=== PATIENT | female | born 1940 | race Caucasian/White ===

== ENCOUNTER → 2019-03-11 08:17 | Outpatient (CLI) | payer MEDICARE, BC, SELFPAY ==
[2019-03-11 09:54] LABS: Vitamin D 25 Hydroxy (D3) 28.2 ng/mL (30.0-100.0)
== END ==
PROVIDERS: PCP Nurse Practitioner; Visit Provider Nurse Practitioner
DX: C22.9 Malignant neoplasm of liver, not specified as primary or secondary (principal); E55.9 Vitamin D deficiency, unspecified
CPT/HCPCS: 36415; 80053; 82105; 82306; 85025

== ENCOUNTER → 2019-06-06 12:00 | Outpatient (CLI) | payer MEDICARE, BC, SELFPAY ==
[2019-06-06 13:21] LABS: Add Manual Diff / Slide Review NO; Basophils Absolute Auto 0 /uL (0-100); Basophils Percent Auto 0.8 % (0-2); Eosinophils Absolute Auto 0 /uL (0-450); Eosinophils Percent Auto 0.5 % (2-4); Hematocrit 44.9 % (36-46); Hemoglobin 15.7 g/dL (12.0-16.0); Lymphocytes Absolute Auto 500 /uL (1100-4500); Mean Corpuscular Hemoglobin 33.1 PG (26-34); Mean Corpuscular Volume 94.5 fL (80-100); Monocytes Absolute Auto 300 /uL (0-900); Monocytes Percent Auto 9.7 % (3-14); Neutrophils Absolute Auto 2700 /uL (1500-7000); Platelet Count 160 X10^3/uL (150-400); Red Blood Cell Count 4.75 X10^6/uL (4.0-5.2); Red Cell Distribution Width 13.8 % (11.6-14.8); White Blood Cell Count 3.6 X10^3/uL (4.5-11.0)
[2019-06-06 13:41] LABS: Alanine Aminotransferase 75 IU/L (<35); Albumin 4.4 g/dL (3.5-5.0); Albumin Globulin Ratio 1.7 (1.0-2.8); Alkaline Phosphatase 148 U/L (38-126); Aspartate Aminotransferase 87 IU/L (14-36); BUN Creatinine Ratio 16.3 (6-22); Bilirubin Total 0.7 mg/dL (0.2-1.3); Blood Urea Nitrogen 13 mg/dL (7-17); Calcium 9.5 mg/dL (8.4-10.2); Carbon Dioxide 30 mmol/L (22-32); Chloride 101 mmol/L (98-107); Estimated Glomerular Filt Rate > 60.0 mL/min (>60); Globulin 2.6 g/dL (1.7-4.1); Glucose 91 mg/dL (80-110); HEMOLYSIS < 15 (0-50); Potassium 4.3 mmol/L (3.4-5.1); Sodium 137 mmol/L (137-145)
[2019-06-09 15:41] LABS: Alpha Fetoprotein 4.7 ng/mL (< 6.1)
== END ==
PROVIDERS: PCP Nurse Practitioner; Visit Provider Nurse Practitioner
DX: C22.9 Malignant neoplasm of liver, not specified as primary or secondary (principal)
CPT/HCPCS: 36415; 80053; 82105; 85025; 86900; 86901

== ENCOUNTER → 2019-07-27 11:36 | Outpatient (CLI) | payer MEDICARE, BC, SELFPAY ==
--- NOTE | 2019-07-27 11:37 | DI.MRI.S_ITS ---
PROCEDURE: MR ABDOMEN WO/W CON INDICATIONS: multifocal hepatoma TECHNIQUE: Coronal HASTE, axial 2D FLASH in- and [id number]; axial breath-hold T2 FSE. Dynamic axial VIBE during the administration of contrast; post-contrast coronal VIBE or 2D FLASH with fat saturation from the hepatic dome to the iliac crests. Optional diffusion weighted imaging and ADC may be performed. COMPARISON: None available. FINDINGS: Image quality: There is motion artifact markedly limiting evaluation. Lung bases: No basal pleural effusions. Bilateral breast implants are partially visualized. Heart size is normal. Solid organs: Inferomedially within segment 5 of the right hepatic lobe, there is an oval mass measuring approximately 3.6 x 2.4 x 3.9 cm demonstrating isointense signal to the liver on T2 and mild hypointensity on T1. Following contrast administration, there is hypervascular peripheral rim enhancement with internal washout on portal venous and delayed images. There is a small adjacent lesion within segment 5 inferolateral 3 the larger mass which is not well seen due to extensive motion artifact. There is suggestion of mild hypervascular enhancement on the arterial phase with washout on the portal venous and delayed phases. This measures up to approximately 0.8 cm. Gallbladder appears within normal limits without gallstones. No biliary ductal dilatation. Pancreas is grossly normal in morphology. No pancreatic duct dilatation. Spleen is normal in size and enhancement. No adrenal nodules. Kidneys demonstrate hydronephrosis. A Nodes and vessels: No retroperitoneal or mesenteric adenopathy by size criteria. Aorta and inferior vena cava are normal in size. The main portal vein appears patent without evidence of definite filling defects or invasion. Bowel and peritoneum: Unenhanced bowel loops are normal in caliber. No free fluid. Bones and soft tissues: No ventral hernias. Bone marrow is normal in overall signal. IMPRESSION: 1. Markedly limited study due to motion artifact. 2. Two mass lesions within segment 5 of the right hepatic lobe demonstrating washout on delayed images are consistent with patient's history of multifocal hepatomas. Dictated by: Andrea Betancourt M.D. on 07/27/2019 at 16:38 Approved by: Andrea Betancourt M.D. on 07/27/2019 at 16:47
== END ==
PROVIDERS: PCP Nurse Practitioner; Referring Provider Nurse Practitioner; Visit Provider Nurse Practitioner
DX: C22.9 Malignant neoplasm of liver, not specified as primary or secondary (principal); N13.30 Unspecified hydronephrosis; Z98.82 Breast implant status
CPT/HCPCS: 74183; A9579

== ENCOUNTER → 2019-07-28 09:41 | Outpatient (CLI) | payer MEDICARE, BC, SELFPAY ==
[2019-07-28 10:08] LABS: Add Manual Diff / Slide Review NO; Basophils Absolute Auto 0 /uL (0-100); Eosinophils Absolute Auto 100 /uL (0-450); Eosinophils Percent Auto 2.6 % (2-4); Hematocrit 44.4 % (36-46); Hemoglobin 15.1 g/dL (12.0-16.0); Lymphocytes Absolute Auto 1000 /uL (1100-4500); Lymphocytes Percent Auto 23.9 % (25-40); Mean Corpuscular HGB Conc 33.9 % (30-36); Mean Corpuscular Hemoglobin 32.8 PG (26-34); Mean Corpuscular Volume 96.8 fL (80-100); Monocytes Absolute Auto 400 /uL (0-900); Monocytes Percent Auto 9.9 % (3-14); Neutrophils Absolute Auto 2700 /uL (1500-7000); Neutrophils Percent Auto 62.6 % (50-75); Platelet Count 192 X10^3/uL (150-400); Red Blood Cell Count 4.59 X10^6/uL (4.0-5.2); Red Cell Distribution Width 13.8 % (11.6-14.8); White Blood Cell Count 4.3 X10^3/uL (4.5-11.0)
[2019-07-28 10:50] LABS: Alanine Aminotransferase 25 IU/L (<35); Albumin 4.2 g/dL (3.5-5.0); Albumin Globulin Ratio 1.8 (1.0-2.8); Alkaline Phosphatase 108 U/L (38-126); Aspartate Aminotransferase 32 IU/L (14-36); BUN Creatinine Ratio 16.9 (6-22); Bilirubin Total 0.4 mg/dL (0.2-1.3); Blood Urea Nitrogen 13 mg/dL (7-17); Calcium 9.5 mg/dL (8.4-10.2); Carbon Dioxide 27 mmol/L (22-32); Chloride 103 mmol/L (98-107); Estimated Glomerular Filt Rate > 60.0 mL/min (>60); Globulin 2.3 g/dL (1.7-4.1); Glucose 75 mg/dL (80-110); HEMOLYSIS < 15 (0-50); Potassium 4.3 mmol/L (3.4-5.1); Sodium 138 mmol/L (137-145); Total Protein 6.5 g/dL (6.3-8.2)
[2019-07-29 00:07] LABS: Alpha Fetoprotein 5.8 ng/mL (0.0-8.3)
--- NOTE | 2019-10-03 11:48 | ONC.MSW ---
Description: Initial Referral Navigation Activity: Reviewed referral for acuity, medical status, and immediate needs. Forwarded to scheduling for next available initial consult time.
== END ==
PROVIDERS: PCP Nurse Practitioner; Referring Provider Nurse Practitioner; Visit Provider Nurse Practitioner
DX: C22.9 Malignant neoplasm of liver, not specified as primary or secondary (principal)
CPT/HCPCS: 36415; 80053; 82105; 85025

== ENCOUNTER → 2019-10-24 08:05 | Outpatient (CLI) | payer MEDICARE, BC, SELFPAY ==
[2019-10-24 10:06] LABS: Add Manual Diff / Slide Review NO; Basophils Absolute Auto 0 /uL (0-100); Basophils Percent Auto 1.1 % (0-2); Eosinophils Absolute Auto 100 /uL (0-450); Eosinophils Percent Auto 1.9 % (2-4); Hematocrit 46.3 % (36-46); Hemoglobin 16.1 g/dL (12.0-16.0); Lymphocytes Absolute Auto 1000 /uL (1100-4500); Lymphocytes Percent Auto 24.1 % (25-40); Mean Corpuscular HGB Conc 34.7 % (30-36); Mean Corpuscular Hemoglobin 32.9 PG (26-34); Monocytes Absolute Auto 400 /uL (0-900); Monocytes Percent Auto 8.8 % (3-14); Neutrophils Absolute Auto 2700 /uL (1500-7000); Neutrophils Percent Auto 64.1 % (50-75); Platelet Count 208 X10^3/uL (150-400); Red Blood Cell Count 4.87 X10^6/uL (4.0-5.2); Red Cell Distribution Width 13.6 % (11.6-14.8); White Blood Cell Count 4.2 X10^3/uL (4.5-11.0)
[2019-10-24 10:36] LABS: Alanine Aminotransferase 20 IU/L (<35); Albumin 4.3 g/dL (3.5-5.0); Albumin Globulin Ratio 1.6 (1.0-2.8); Alkaline Phosphatase 102 U/L (38-126); Aspartate Aminotransferase 31 IU/L (14-36); BUN Creatinine Ratio 17.9 (6-22); Bilirubin Total 0.6 mg/dL (0.2-1.3); Blood Urea Nitrogen 15 mg/dL (7-17); Calcium 9.6 mg/dL (8.4-10.2); Carbon Dioxide 29 mmol/L (22-32); Chloride 103 mmol/L (98-107); Estimated Glomerular Filt Rate > 60.0 mL/min (>60); Globulin 2.7 g/dL (1.7-4.1); Glucose 97 mg/dL (80-110); HEMOLYSIS < 15 (0-50); Potassium 3.5 mmol/L (3.4-5.1); Sodium 138 mmol/L (137-145)
[2019-10-24 23:07] LABS: Alpha Fetoprotein 5.4 ng/mL (0.0-8.3)
== END ==
PROVIDERS: PCP Nurse Practitioner; Referring Provider Nurse Practitioner; Visit Provider Nurse Practitioner
DX: C22.9 Malignant neoplasm of liver, not specified as primary or secondary (principal)
CPT/HCPCS: 36415; 80053; 82105; 85025

== ENCOUNTER → 2019-11-08 11:00 | Outpatient (CLI) | payer MEDICARE, BC, SELFPAY ==
--- NOTE | 2019-11-08 11:11 | DI.CT.S_ITS ---
PROCEDURE: CT UE RT WO CON INDICATIONS: Primary osteoarthritis, right shoulder TECHNIQUE: Noncontrast 1-1.5 mm thick sections acquired from the acromioclavicular joint to the inferior scapula, with coronal and sagittal reformatting. COMPARISON: [facility] Outside Film, MR, MR SHOULDER RIGHT WITHOUT CONTRAST, 05/05/2018, 8:36. FINDINGS: Image quality: Excellent. Bones: No acute fracture or focal osseous destruction. Severe glenohumeral degenerative joint disease with near [id number] appearance, subchondral sclerosis and cystic changes. There is also AC joint degeneration. High riding humeral head suggestive of long-standing rotator cuff pathology. Soft tissues: Innumerable scattered sub-5 mm presumed dystrophic calcifications seen throughout the anterior chest wall and axilla. Right apical presumed scarring/atelectasis although technically nonspecific. Partially visualized breast prostheses. IMPRESSION: Severe right shoulder joint degeneration as above High riding humeral head suggestive of long-standing rotator cuff pathology. Dictated by: Selwyn Perez M.D. on 11/08/2019 at 13:24 Approved by: Selwyn Perez M.D. on 11/08/2019 at 13:28
[2019-11-08 12:17] LABS: Add Manual Diff / Slide Review NO; Basophils Absolute Auto 100 /uL (0-100); Basophils Percent Auto 1.1 % (0-2); Eosinophils Absolute Auto 100 /uL (0-450); Eosinophils Percent Auto 1.1 % (2-4); Hematocrit 44.1 % (36-46); Hemoglobin 15.2 g/dL (12.0-16.0); Lymphocytes Absolute Auto 1100 /uL (1100-4500); Lymphocytes Percent Auto 21.9 % (25-40); Mean Corpuscular HGB Conc 34.4 % (30-36); Mean Corpuscular Volume 96.1 fL (80-100); Monocytes Absolute Auto 500 /uL (0-900); Monocytes Percent Auto 8.8 % (3-14); Neutrophils Absolute Auto 3500 /uL (1500-7000); Neutrophils Percent Auto 67.1 % (50-75); Platelet Count 214 X10^3/uL (150-400); Red Blood Cell Count 4.59 X10^6/uL (4.0-5.2); Red Cell Distribution Width 13.5 % (11.6-14.8); White Blood Cell Count 5.2 X10^3/uL (4.5-11.0)
[2019-11-08 12:31] LABS: Alanine Aminotransferase 19 IU/L (<35); Albumin 4.3 g/dL (3.5-5.0); Alkaline Phosphatase 99 U/L (38-126); Aspartate Aminotransferase 31 IU/L (14-36); BUN Creatinine Ratio 20.3 (6-22); Bilirubin Total 0.5 mg/dL (0.2-1.3); Blood Urea Nitrogen 15 mg/dL (7-17); Calcium 9.5 mg/dL (8.4-10.2); Carbon Dioxide 28 mmol/L (22-32); Chloride 100 mmol/L (98-107); Estimated Glomerular Filt Rate > 60.0 mL/min (>60); Globulin 2.1 g/dL (1.7-4.1); Glucose 83 mg/dL (80-110); HEMOLYSIS < 15 (0-50); Sodium 135 mmol/L (137-145); Total Protein 6.4 g/dL (6.3-8.2)
== END ==
PROVIDERS: PCP Nurse Practitioner; Referring Provider Orthopaedic Surgery; Visit Provider Orthopaedic Surgery
DX: M19.011 Primary osteoarthritis, right shoulder (principal); Z01.818 Encounter for other preprocedural examination; Z01.812 Encounter for preprocedural laboratory examination
CPT/HCPCS: 36415; 73200; 80053; 85025; 93005

== ENCOUNTER → 2019-12-08 08:08 | Outpatient (CLI) | payer MEDICARE, BC, SELFPAY ==
--- NOTE | 2019-12-08 08:10 | DI.MG.S_ITS ---
BILATERAL DIGITAL SCREENING MAMMOGRAM 3D/2D WITH CAD WITH AUGMENTATION: 12/08/2019 CLINICAL: Routine screening. Comparison is made to exams dated: 08/02/2018 mammogram, 07/23/2017 mammogram, and 07/21/2016 mammogram - [facility]. The tissue of both breasts is heterogeneously dense. This may lower the sensitivity of mammography. Current study was also evaluated with a Computer Aided Detection (CAD) system. Right breast implant is present. Left breast implant is stable. There are benign diffuse calcifications in both breasts. No significant masses, calcifications, or other findings are seen in either breast. Residual scattered bilateral injected free silicone noted. There has been no significant interval change. IMPRESSION: There is no mammographic evidence of malignancy. A 1 year screening mammogram is recommended. This exam was interpreted at Station ID: [id number]. NOTE: For mammograms, a report in lay terms will be sent to the patient. Approximately 15% of breast malignancies will not be visualized mammographically. In the management of a palpable breast mass, a negative mammogram must not discourage biopsy of a clinically suspicious lesion. Electronically Signed By: Nate Pederson M.D. aty/:12/08/2019 09:36:48 letter sent: Normal Exam ACR BI-RADS Category 2: Benign Finding(s) 3342F
== END ==
PROVIDERS: PCP Nurse Practitioner; Referring Provider Nurse Practitioner; Visit Provider Nurse Practitioner
DX: Z12.31 Encounter for screening mammogram for malignant neoplasm of breast (principal); Z98.82 Breast implant status
CPT/HCPCS: 77063; 77067

== ENCOUNTER → 2019-12-27 14:43 | Outpatient (CLI) | payer MEDICARE, BC, SELFPAY ==
[2019-12-28 09:09] LABS: COVID19 Sendout Not Detected (Not Detect)
== END ==
PROVIDERS: PCP Nurse Practitioner; Visit Provider Physician Assistant
DX: Z11.9 Encounter for screening for infectious and parasitic diseases, unspecified (principal)
CPT/HCPCS: 87635

== ENCOUNTER 2019-12-30 06:12 | Inpatient (IN) | payer MEDICARE, BC, SELFPAY ==
[2019-12-22 08:49] VITALS: BMI 20.4
[2019-12-30] VITALS (14 sets, daily range): BP systolic 100–143; BP diastolic 63–78; PULSE 52–69; RESP 9–18; TEMP 35.7–36.6; O2SAT 92–99; BMI 20.4
[2019-12-30] MEDS: LACTATED RINGERS 1,000 ML 42 ML IV (06:59)
[2019-12-30] MEDS: fentaNYL 100 MCG/2 ML INJ 50 MCG IV (07:34)
--- NOTE | 2019-12-30 07:37 | PM.PREOP ---
Pre-operative Note COVID-19 COVID-19 status: Negative Result date/Date tested (Pos, Neg/Pending): 12/27/19 Interval Note History & Physical reviewed/Exam performed by Physician: Yes Changes to H&P: No
[2019-12-30] MEDS: MIDAZOLAM 2 MG/2 ML VIAL IV (07:41)
--- NOTE | 2019-12-30 07:51 | SUR.PREOP ---
0730 Block start time [] . Monitoring initiated and maintained throughout procedure. Oxygen and medications given per anesthesiologist instructions. Patient remained stable throughout procedure, no adverse reactions noted. Block end time [0748].
--- NOTE | 2019-12-30 07:51 | SUR.PREOP ---
Block completed to right shoulder. Bp 124/73, HR 58; o2 sat 100 % on 2 liters,.
[2019-12-30] MEDS: VANCOMYCIN 1,000 MG/200 ML PIGGYBACK 200 MG IV (08:00)
[2019-12-30] MEDS: SODIUM CHLORIDE 0.9% IV (08:17)
[2019-12-30] MEDS: GENTAMICIN IV (08:17)
[2019-12-30] MEDS: LIDOCAINE 1% W/EPI 20 ML INJ (08:25)
--- NOTE | 2019-12-30 08:36 | SUR.OPER ---
Beach chair with Carlan/Jaida shoulder positioner. Lower body on padded OR bed. Head in foam padded head cradle, secured with straps. Non-operative arm secured <90 degrees abduction. Pillow under knees. Safety belt at thigh. Gel pad under heels. Cloth tape over blanket over lower legs.
--- NOTE | 2019-12-30 09:22 | P.PCN_ITS ---
Procedures Date/Time Date of procedure: 12/30/19 Time of procedure: 07:35 Nerve Block Time out performed: Yes (Patient, site and side confirmed.) Location of anesthetic used: Right Interscalene/ Brachial Plexus Amount of anesthesia used (mL): 15 (12 ml Ropivacaine 0.5% and 3 ml Lidocaine 1% with epi) Nerve blocks: brachial plexus (Right Interscalene Block using Ultrasound visua lization and Nerve Stimulator) Procedure successful: Yes Patient tolerated procedure: well (IV sedation given: Midazolam 1+1 mg and Fentanyl 50 mcg ) Complications: none Additional comments: Procedure done in Block Room with routine monitors and O2 per NC. Beach chair position, chloroprep and sterile drape. Landmarks ID'd and confirmed visualization with US. 1% Lidocaine wheal with 25 g. 50mm 22g nerve stim needle. Positive twitch to right deltoid to 5mAmp. Negative aspiration; total volume 15 ml (12ml Ropivacaine 0.5% and 3ml Lidocaine 1% with epi). Patient tolerated well and taken to OR for surgical procedure.
--- NOTE | 2019-12-30 09:54 | DI.RAD.S_ITS ---
PROCEDURE: XR SHOULDER RT MIN 2V INDICATIONS: s/p TSA TECHNIQUE: To views of the shoulder were acquired. COMPARISON: None. FINDINGS: Bones: Patient is status post right shoulder arthroplasty with anatomic right shoulder alignment. No fractures or dislocations. There is also expected postsurgical widening of acromioclavicular joint. No suspicious bony lesions. Visualized ribs appear intact. Soft tissues: No suspicious soft tissue calcifications. IMPRESSION: Post right shoulder arthroplasty changes with anatomic right shoulder alignment. Dictated by: Steve Up M.D. on 12/30/2019 at 10:24 Approved by: Steve Up M.D. on 12/30/2019 at 10:28
--- NOTE | 2019-12-30 09:55 | P.OP_ITS ---
Operative Date/Time/Diagnoses Date of procedure: 12/30/19 Time of procedure: 08:00 Pre-op diagnosis: Right shoulder arthritis Post-op diagnosis: same Procedure & Clinicians Procedure: Right total shoulder arthroplasty Same procedure as scheduled: Yes Indications: End-stage arthritis to the right shoulder Surgeon: Dimitri Ro Drug Abuse Worker: Shyanne Nesbitt Anesthesia Type: General and Peripheral nerve block Operative Notes Findings: End-stage arthritic changes to the glenohumeral joint. No loose bodies but inferior osteophytes around the humeral neck and head. Signs of a previous rotator cuff repair the rotator cuff was still intact. Significant cartilage loss to both the humeral head as well as the glenoid. Not much deformity to the humeral head. Concentric wear to the glenoid. Closure Type: primary Specimen(s): none sent Applied: implant(s) (46 x 20 humeral head, size 6 humeral stem, and a small glenoid) Estimated Blood Loss (mL): 50 Blood products transfused: none Procedure in detail: On date of service, Patient was met in the holding area. The operative site was signed and witnessed by the OR staff. The surgeries once again discussed with the patient and any remaining questions they had were answered fully. Patient was taken back to the operating theater and placed on the operating table in a supine position. Great care was taken to ensure that all bony prominences were properly padded. Patient was then placed into the beach chair position. The head and neck were properly positioned and secured. A timeout was performed verifying patient's name, procedure, and the operative site. The upper extremity was then prepped and draped in the normal sterile fashion. Previously, the bony anatomy and incision were marked out as well as injected with Marcaine with epinephrine. A deltopectoral approach was performed. 10 blade was used to incise the skin and fascial tissue. A deep knife was used to continue sharp dissection until the cephalic vein was visualized. The cephalic vein was dissected free allowing us to expose the deltopectoral interval. This interval was then developed. A Miller elevator was used to free up the deltoid of any scarring both superficially as well as deeply. The vein and the deltoid were taken laterally while the pectoralis was taken medially. This gave us good visualization of the strap muscles. The clavipectoral fascia was removed and the strap muscles were then retracted medially with the pectoralis. This gave us stabilization of the subscapularis. The circumflex vessels were ligated and the subscapularis was sharply excised off the lesser tuberosity and then tagged. Once the subscapularis was released we're able to dislocate the shoulder. Patient had end-stage arthritic changes to the humeral head as well as the glenoid with large osteophytes anterior inferiorly as well as posteriorly. A Ronger was then used to remove the osteophytes. Next, cutting guide was placed and a saw was used to remove the humeral head. Once the head was removed it was templated. A starting awl was then used to find the canal and then the humerus was reamed and broached. Trial stem was placed and a variety of heads were trialed. A protector placed for the osteotomy was then placed and and we turned our attention back to the subscapularis as well as the glenoid. The subscapularis was freed up and a 360? fashion. The degenerative anterior and inferior capsular tissue was removed. This was followed by removing the degenerative labral tissue from around the glenoid as well as the biceps insertion. This gave us good visualization of the glenoid. Glenoid trials were used until we found the appropriate fit and curvature. Next the center hole was drilled followed by reaming of the glenoid. The wound was copiously irrigated after reaming. Next the pegs were drilled and a trial glenoid was impacted into place. Once we were satisfied with the preparation of the glenoid, the final component was cemented into place. This was followed by impaction. We Return to our attention back to the humerus. The protector plate was removed and heads were trialed once again and so we found the appropriate fit. The trials were removed and bone tunnels were made into the humeral neck. #2 FiberWire were passed through the bone tunnels for eventual subscapularis repair. The final stem and head were impacted into place and the shoulder was reduced. It was taken through range of motion and was felt to be stable in both posterior translation as well as external and internal rotation with abduction. The subscapularis was repaired back to the lesser tuberosity through the bone tunnels. This was then reinforced with soft tissue repair. Part of the rotator interval was then closed. The rest of the wound was closed in a layered fashion. The shoulder was then cleaned dried and dressed and the patient was taken to the PACU in stable condition. Patient will follow our postoperative protocol for total shoulder arthroplasty. Complications: none Post-operative Condition: stable Disposition: Acute Care Plan for aftercare: Patient will be admitted overnight for pain control. Patient can be discharged in the morning. Patient will be in a sling for 6 weeks. Patient will follow our postoperative protocol for total shoulder arthroplasty.
[2019-12-30] MEDS: LACTATED RINGERS 1,000 ML 125 ML IV ×2 (11:28→23:55)
--- NOTE | 2019-12-30 11:35 | PC.NURSE ---
Day shift note: Received patient from PACU by Shy RUBALCAVA, awake, alert, and pleasant. VSS and afebrile. SCD's and IVF initiated upon arrival. ED at bedside providing supportive care. Ice pack placed to right Miguel leo. IS teaching done, will reiterate once more awake. Oriented to room, environment and plan of care. Moderate risk precautions initiated, call light within reach.
--- NOTE | 2019-12-30 15:00 | PT.IIE ---
Current Diagnoses Primary osteoarthritis, right shoulder (12/30/19) Surgery Performed Operation Date: 12/30/19 07:45 Actual Procedures p Total Shoulder Arthroplasty(Right) - Dimitri Ro MD Surgical History (Last Updated 12/22/19 @ 09:08 by Michelle Jameson RN) Anesthesia (Resolved) History of facelift (Acute) History of foot surgery (Resolved) History of hand surgery (Resolved) History of repair of right rotator cuff (Acute) Hx of bilateral breast implants (Acute) Hx of dilation and curettage (Acute) Hx of tonsillectomy (Acute) Medical History (Last Updated 12/23/19 @ 09:36 by Michelle Jameson RN) Arthritis (Acute) BCC (basal cell carcinoma) (Acute) Breast implant in situ (Acute) Foot pain (Inactive ~1982) Liver cancer (Chronic ~2015) Shoulder pain (Inactive ~1987) Tuberculosis (Inactive ~1970) Vaginal atrophy (Acute) Physical Therapy Inpatient Evaluation/Re-Eval M1 PT/OT-IP Prior Functional Status Start: 12/30/19 16:26 Freq: NEEDED Status: Active Protocol: Document 12/30/19 15:00 AB (Rec: 12/30/19 16:42 AB [id number]) Medical Review Prior Functional Status Medical History Reviewed Yes Communication able to make needs known Mobility and Gait pt stated that she is independent with all mobilities and ambulation without AD Social History Household Members spouse Living Arrangements House Number of Floors (Floors) Two Floors Number of Stairs To Enter/Railing? not steps to enter has 1 flight of steps to get to bedroom level with L rail Home Environment High Toilet,Walk in Shower Home Equipment Shower Seat without Backrest, Grab Bars In Shower Employment Status Retired Additional Social History Comment pt has an adjustable bed at home M2 PT-IP Current Condition Start: 12/30/19 16:26 Freq: NEEDED Status: Active Protocol: Document 12/30/19 15:00 AB (Rec: 12/30/19 16:42 AB [id number]) Physical Therapy Current Condition Current Condition Evaluation Date 12/30/19 Treatment Diagnosis s/p R TSA; difficulty in walking Onset Date 12/30/19 Precautions Shoulder Precautions Sling,PROM,Internal Rotation to Body,No External Rotation, No Abduction,Forward Flexion to 90 degrees,Pendulums Weight Bearing Status Weight Bearing Status Non-Weight Bearing Allowed Weight Bearing Amount (enter % RUE NWB or #) (%) M3 PT-IP Subjective Start: 12/30/19 16:26 Freq: NEEDED Status: Active Protocol: Document 12/30/19 15:00 AB (Rec: 12/30/19 16:42 AB [id number]) Subjective Physical Therapy Visit Type Type Initial Evaluation Visit Start Time 15:00 Visit Stop Time 16:10 Total Visit Minutes 70 Number of ASSURANCE ASSISTANT Visits 0 Physical Therapy Visit Comments Patient Comments pt is agreeable to do PT Therapy Pain Assessment Pain Present Pain Present Denied Pain M4 PT-IP Mobility and Gait Start: 12/30/19 16:26 Freq: NEEDED Status: Active Protocol: Document 12/30/19 15:00 AB (Rec: 12/30/19 16:42 AB [id number]) PT-Bed Mobility Assessment Supine to Sit Supine to Sit Standby Assistance,Head of Bed Elevated Sit to Supine Sit to Supine Standby Assistance,Head of Bed Elevated Scooting Scooting to Edge of Bed Standby Assistance PT-Transfer Assessment Sit to and From Stand Sit to and from Stand Standby Assistance,1 Person Assistance,Use of Upper Extremities Equipment Transfer Assistive Device None,Gait Belt Orthotic/Prosthetic Devices or Brace: Yes Transfers Transfer Destination Toilet Transfer Technique ambulated without AD Transfer Ability Level of Assist Standby Assistance,1 Person Assistance,Use of Upper Extremities Comments Mobility Comments educated pt on shoulder precautions and pendulum. pt stated that RUE sensation is not fully back yet. opted not to do pendulum at this time but educated pt on how to do pendulum and agreed to do it tomorrow. pt completed supine to sit SBA with HOB elevated. pt has an adjustable bed at home. adjusted sling. Pt also completed AAROM of elbow and hand exercises as pt still has decrease motor control. pt provided with another size sling due to sling provided in PACU/OR was too small for pt. educated pt on how to put sling on. agreed to do caregiver training education with spouse tomorrow at ~ 10 am. pt requested to use the toilet . ambulated without AD SBA to the toilet. completed toileting without assistance. ambulated to the sink SBA without AD and was able to maintain standing SBA without AD. pt ambulated towards the stairs ~ 50 ft without AD SBA. completed up/down steps with L rail ascending. pt requested to go back to bed . completed sit to supine SBA. positioned pt in bed. call light and table placed within reach. Gait Assessment Gait Gait Assistance Required: Standby Assistance Distance (Feet) 50 Able to Maintain Weight Bearing Status Yes During Gait Assistive Devices Assistive Device None,Gait Belt Orthotic/Prosthetic Devices or Brace: Yes Factors Limiting Gait Function Factors Limiting Gait Function Decreased Sensation,Decreased Strength,Limited Range of Motion,Poor Balance Comments Gait Comments pls refer to mobility section for details Stair Climbing Assessment Evaluation Level of Assist On Stairs Standby Assistance,Contact Guard Assistance Devices Stair Climbing Assistive Devices Left Railing Technique/Endurance Stair Climbing Direction Ascend and Descend Stair Climbing Technique Step to Step Number of Steps Climbed 3 Query Text: Stair Climbing Set # Repetitions (reps) 2 Comments Stair Climbing Comments completed up/down steps x 2 sets. pt required CGA with descent on first attempt and educated on techniques and safety and was able to complete with sBA. PT-Balance Assessment Sitting Balance and Reactions Static Sitting Balance Ability Normal Dynamic Sitting Balance Ability Good Standing Balance and Reactions Static Standing Balance Ability Good Dynamic Standing Balance Ability Fair Device Used without AD M5 PT-IP Objective Assessments Start: 12/30/19 16:26 Freq: NEEDED Status: Active Protocol: Document 12/30/19 15:00 AB (Rec: 12/30/19 16:42 AB [id number]) Orientation Orientation/Cognition Level of Alertness Alert Orientation Name,Age,Birthday,Month,Date, Year,Day of Week,Place, Situation Language Function Ability No Deficits Noted Safety Awareness Decreased Safety Awareness Memory Description No Deficits Noted Gross Range of Motion Upper Extremity ROM Assessment Right Impaired Impairments R UE on sling for 6 weeks; elbow tightness during AAROM Lower Extremity ROM Assessment Within Functional Limits Strength Lower Extremity Strength Assessment Within Functional Limits Coordination Assessment Gross Coordination Gross Coordination WNL Sensation Assessment Sensation Gross Sensation Right UE Impaired Light Touch Impaired Proprioception (Position) Impaired Sensation Description Numbness Comments Sensation Comments pt still does not have full sensation and motor control on RUE M6 PT-IP Treatment Start: 12/30/19 16:26 Freq: NEEDED Status: Active Protocol: Document 12/30/19 15:00 AB (Rec: 12/30/19 16:42 AB [id number]) Physical Therapy Treatment Exercises Exercises Elbow Flexion/Extension,Wrist ROM,Hand ROM Education Education Provided Precautions,Weight Bearing Status,Post-Op Packet,Safety Brace Education John Cabezas,Patient M7 PT-IP Assessment and Plan Start: 12/30/19 16:26 Freq: NEEDED Status: Active Protocol: Document 12/30/19 15:00 AB (Rec: 12/30/19 16:42 AB [id number]) PT Summary Assessment and Plan Potential Rehabilitation Potential Good Status of Condition at Evaluation Stable Summary Impairments Pain,ROM,Strength,Balance, Sensation,Tone,Bed Mobility, Transfers,Gait,Activity Tolerance Assessment Summary pt s/p R TSA and just had surgery this morning. set up caregiver training tomorrow @ 10 am with pt and spouse. pt plans to go home and spouse to assist her. pt requiring SBA with bed mobility, transfers and ambulation without AD as well as stair climbing. will continue to assess progress. Goals Bed Mobility Goal Independent Transfer Goal Independent Gait Goal Independent Gait Distance 150 Other Goals up/down 12 steps L rail ascending mod I Days to Meet Goals 3 Frequency of Treatment Frequency Of Treatment Twice a Day Treatment Plan Physical Therapy Treatment Plan Bed Mobility Training,Transfer Training,Gait Training, Therapeutic Exercise,Balance Retraining,Post Op Education, Discharge Planning,Hot or Cold Pack,Neuromuscular Re-ed, Coordination Retraining,Manual Therapy Other Recommendations and Next Treatment caregier training @ 10 am 12/30 Recommendations To Nursing Amount of Assist Needed Standby Assistance Discharge Recommendations PT Discharge Recommendations Home with Assistance, Outpatient PT Transportation Needs at Discharge Private Vehicle
[2019-12-30] MEDS: HYDROCODONE/ACET 5/325 TABLET 2 TAB PO (19:30)
[2019-12-30 20:10] LABS: Estimated Glomerular Filt Rate > 60.0 mL/min (>60)
[2019-12-30 21:06] LABS: Vancomycin Trough 6.2 ug/mL (10-20)
[2019-12-30] MEDS: DOCUSATE 100 MG CAPSULE PO (21:46)
[2019-12-30] MEDS: VANCOMYCIN 750 MG/150 ML FROZ.PIGGY 150 MG IV (21:46)
[2019-12-30] MEDS: OXYCODONE IR 5 MG TABLET PO (21:54)
[2019-12-30] MEDS: ACETAMINOPHEN 325 MG TABLET 975 MG PO (21:55)
[2019-12-31] MEDS: HYDROCODONE/ACET 5/325 TABLET 2 TAB PO ×2 (02:24→08:34)
[2019-12-31 04:00] VITALS: BP 106/60; PULSE 68; RESP 16; TEMP 36.7; O2SAT 98
[2019-12-31 06:21] LABS: Hematocrit 37.4 % (36-46); Hemoglobin 12.7 g/dL (12.0-16.0); Mean Corpuscular HGB Conc 33.9 % (30-36); Mean Corpuscular Hemoglobin 32.1 PG (26-34); Mean Corpuscular Volume 94.8 fL (80-100); Platelet Count 171 X10^3/uL (150-400); Red Blood Cell Count 3.94 X10^6/uL (4.0-5.2); Red Cell Distribution Width 13.9 % (11.6-14.8); White Blood Cell Count 10.5 X10^3/uL (4.5-11.0)
[2019-12-31 08:00] VITALS: BP 123/78; PULSE 60; RESP 15; TEMP 36.3; O2SAT 98
[2019-12-31] MEDS: polyethylene glycoL 3350 17 GM POWD.PACK PO (08:34)
[2019-12-31] MEDS: DOCUSATE 100 MG CAPSULE PO (08:34)
[2019-12-31] MEDS: ASCORBIC ACID 500 MG TABLET PO (08:34)
[2019-12-31] MEDS: FISH OIL 1,000 MG CAPSULE 1000 MG PO (08:34)
[2019-12-31] MEDS: CHOLECALCIFEROL (VITAMIN D3) 1,000 UNIT TABLET 1000 UNIT PO (08:34)
[2019-12-31] MEDS: VANCOMYCIN 750 MG/150 ML FROZ.PIGGY 150 MG IV (08:35)
--- NOTE | 2019-12-31 09:08 | CM.DANOTE ---
DCP: Case received, EMR reviewed and met with patient. Introduced self and role. Was able to obtain information from patient regarding her baseline activity status prior to surgery. DCP assessment completed with information currently available. Patient is a 79 year old female who admitted yesterday morning to the care of the orthopedic team. PCP: ALLEN Davis. Payer: confirmed: Medicare/[employer] [facility]. Patient came to the hospital for a surgical procedure. She had a right shoulder arthroplasty. Patient has had history of chronic shoulder pain secondary to her osteoarthritis. Met with patient in her room. She is alert and oriented, pleasant. She is independent at baseline, she resides here in [place] with her , [place]on. She has been driving prior to surgery. Patient stated that she is set up with outpatient physical therapy as well. P: DCP to continue to follow. Patient should be able to go home when stable and cleared by therapy team. Rachell Walden RN/Spray Maker
--- NOTE | 2019-12-31 09:12 | PM.DS.1 ---
History of Present Illness History of Present Illness Date Patient Seen: 12/31/19 Time Patient Seen: 09:12 Chief complaint: Right total shoulder arthroplasty Narrative: Please see HPI in chart. Discharge Providers Provider Date of admission: 12/30/19 06:12 Discharge Date: 12/31/19 Primary care physician: ALLEN Davis Consults: 12/30/19 09:50 Consult to Discharge Planning Routine Comment: Consult to Physical Therapy Evaluate & Treat Comment: Physician Instructions: Evaluate and Treat Consult to Respiratory Therapy Evaluate & Treat Comment: Physician Instructions: Evaluate and treat Discharge provider: Shyanne Nesbitt PA-C Summary Hospital Course Discharge Diagnosis: s/p right shoulder arthroplasty Hospital Course: 79 year old female with history or right shoulder DJD who underwent a right shoulder arthroplasty with Dr. Ro. She tolerated procedure well and was admitted overnight to the acute care floor where she has been progressing well postoperatively. Pain has been well controlled. She has worked with PT and has appropriate caregiver support. She is medically stable for discharge and will be sent with prescriptions for Oxycodone and Colace. Status at Discharge Cognitive/behavioral status at discharge: oriented Functional status at discharge: independent ambulation Overall status at discharge: patient is progressing back to baseline Exam Vital Signs (past 8 hours): - 12/31/19 04:00 12/31/19 08:00 Temperature 98.0 F 97.4 F L Pulse Rate 68 60 Respiratory Rate 16 15 Blood Pressure 106/60 123/78 Pulse Oximetry 98 98 Oxygen Delivery Method Room Air Oxygen Flow Rate 0 Narrative Exam Narrative: Pleasant 79 year old female resting comfortably in bed. Alert and oriented in no acute distress. Aquacel dressing is CDI. Patient wearing sling. Neurovascularly intact in distal extremity. Objective Labs Result Diagrams: 12/31/19 05:55 12/30/19 19:30 Labs: Laboratory Results - last 24 hr 12/30/19 12/30/19 12/31/19 19:30 19:30 05:55 WBC 10.5 RBC 3.94 L Hgb 12.7 Hct 37.4 MCV 94.8 MCH 32.1 MCHC 33.9 RDW 13.9 Plt Count 171 Creatinine 0.66 Estimated GFR > 60.0 Vancomycin Trough 6.2 L Discharge Plan Discharge Plan Patient Disposition: Home Discharge comment: home after PT Discharge orders & Medications Prescriptions: New acetaminophen 325 mg Tablet 975 mg PO TID PRN (Reason: Headache) Qty: 40 RF: 0 docusate sodium [DOK] 100 mg Capsule 100 mg PO BID Qty: 40 RF: 0 oxycodone 5 mg Tablet 5 mg PO Q3HR PRN (Reason: Pain, Moderate (4-6)) Qty: 60 RF: 0 Continued Restasis 0.05 % dropperette 1 drop EYE-BOTH BID Qty: 180 RF: 3 Restasis 0.05 % Dropperette 1 drp EYE-BOTH BID RF: 0 ascorbic acid (vitamin C) [Vitamin C] 500 mg Tablet 500 mg PO DAILY RF: 0 cholecalciferol (vitamin D3) [Vitamin D3] 25 mcg (1,000 unit) Capsule 25 mcg PO DAILY RF: 0 coenzyme Q10 [CoQ-10] 100 mg Capsule 100 mg PO DAILY RF: 0 omega [id number] oil [Fish Oil] 1,000 mg (120 mg-180 mg) Capsule 1 cap PO DAILY RF: 0 Follow up/Referrals: Renata Terrazas ARNP [Primary Care Provider] - Diet/Activity/Treatments Diet: Diet as Tolerated Activity: May come out of sling for hygiene and pendulum exercises Cold/Heat Therapy: Ice packs as needed Skin/Wound/Dressing Care Report to your healthcare provider any signs of infection, such as:: chills, fever, night sweats, unusual drainage and unusual redness Visit Report/Discharge Packet Instructions: DI for Shoulder Replacement Stand Alone Forms: Surgery Discharge Discharge Data Primary Care Provider: Renata Terrazas
[2019-12-31 09:22] VITALS: PULSE 61; RESP 19; O2SAT 98
--- NOTE | 2019-12-31 09:59 | PT.IPTN ---
Current Diagnoses Primary osteoarthritis, right shoulder (12/30/19) Surgery Performed Operation Date: 12/30/19 07:45 Actual Procedures p Total Shoulder Arthroplasty(Right) - Dimitri Ro MD Physical Therapy Treatment Note M2 PT-IP Current Condition Start: 12/30/19 16:26 Freq: NEEDED Status: Discharge Protocol: Document 12/30/19 15:00 AB (Rec: 12/30/19 16:42 AB [id number]) Physical Therapy Current Condition Current Condition Evaluation Date 12/30/19 Treatment Diagnosis s/p R TSA; difficulty in walking Onset Date 12/30/19 Precautions Shoulder Precautions Sling,PROM,Internal Rotation to Body,No External Rotation, No Abduction,Forward Flexion to 90 degrees,Pendulums Weight Bearing Status Weight Bearing Status Non-Weight Bearing Allowed Weight Bearing Amount (enter % RUE NWB or #) (%) M3 PT-IP Subjective Start: 12/30/19 16:26 Freq: NEEDED Status: Discharge Protocol: Document 12/31/19 09:59 AB (Rec: 12/31/19 11:12 AB [id number]) Subjective Physical Therapy Visit Type Type Treatment Note Visit Start Time 09:59 Visit Stop Time 10:33 Total Visit Minutes 34 Number of PRODUCT MANAGEMENT CONSULTANT Visits 0 Physical Therapy Visit Comments Patient Comments pt is agreeable to do PT Therapy Pain Assessment Pain When Pain Assessed At Rest Pain Present Pain Present Pain Reported Location Right Shoulder Intensity 6 Scale Used Numeric (0 - 10) Pain Management Techniques Re-positioning,Timing of Activity with Medications M4 PT-IP Mobility and Gait Start: 12/30/19 16:26 Freq: NEEDED Status: Discharge Protocol: Document 12/31/19 09:59 AB (Rec: 12/31/19 11:12 AB [id number]) PT-Bed Mobility Assessment Supine to Sit Supine to Sit Standby Assistance,Head of Bed Elevated PT-Transfer Assessment Sit to and From Stand Sit to and from Stand Standby Assistance Equipment Transfer Assistive Device None,Gait Belt Orthotic/Prosthetic Devices or Brace: No Transfers Transfer Destination Chair Transfer Technique ambulation without AD Transfer Ability Level of Assist Standby Assistance Comments Mobility Comments spouse in room for caregiver training. pt completed supine to sit with HOB elevated SBA. caregiver training for sling management conducted. pt c/o nausea with elbow/hand exercises and with (+) emesis. BP: 127/71. nurse gave pt meds. attempted pendulum but pt unable to relax RUE and was only able to dangle arm down. Spouse was able to put sling on. also educated spouse on pt's RUE precautions. pt ambulated to the stairs SBA. completed stair climbing L rail SBA. Gait Assessment Gait Gait Assistance Required: Standby Assistance Distance (Feet) 50 Able to Maintain Weight Bearing Status Yes During Gait Assistive Devices Assistive Device None Factors Limiting Gait Function Factors Limiting Gait Function Decreased Activity Tolerance, Limited Range of Motion,Pain Stair Climbing Assessment Evaluation Level of Assist On Stairs Standby Assistance Devices Stair Climbing Assistive Devices Left Railing Technique/Endurance Stair Climbing Direction Ascend and Descend Stair Climbing Technique Step to Step Number of Steps Climbed 3 Stair Climbing Set # Repetitions (reps) 1 M5 PT-IP Objective Assessments Start: 12/30/19 16:26 Freq: NEEDED Status: Discharge Protocol: Document 12/30/19 15:00 AB (Rec: 12/30/19 16:42 AB [id number]) Orientation Orientation/Cognition Level of Alertness Alert Orientation Name,Age,Birthday,Month,Date, Year,Day of Week,Place, Situation Language Function Ability No Deficits Noted Safety Awareness Decreased Safety Awareness Memory Description No Deficits Noted Gross Range of Motion Upper Extremity ROM Assessment Right Impaired Impairments R UE on sling for 6 weeks; elbow tightness during AAROM Lower Extremity ROM Assessment Within Functional Limits Strength Lower Extremity Strength Assessment Within Functional Limits Coordination Assessment Gross Coordination Gross Coordination WNL Sensation Assessment Sensation Gross Sensation Right UE Impaired Light Touch Impaired Proprioception (Position) Impaired Sensation Description Numbness Comments Sensation Comments pt still does not have full sensation and motor control on RUE M6 PT-IP Treatment Start: 12/30/19 16:26 Freq: NEEDED Status: Discharge Protocol: Document 12/31/19 09:59 AB (Rec: 12/31/19 11:12 AB [id number]) Physical Therapy Treatment Exercises Exercises Shoulder Pendulums,Elbow Flexion/Extension,Wrist ROM, Hand ROM Education Education Provided Precautions,Safety Brace Education [place],Caregiver M7 PT-IP Assessment and Plan Start: 12/30/19 16:26 Freq: NEEDED Status: Discharge Protocol: Document 12/31/19 09:59 AB (Rec: 12/31/19 11:12 AB [id number]) PT Summary Assessment and Plan Potential Rehabilitation Potential Good Summary Impairments Pain,ROM,Strength,Balance, Coordination,Sensation,Tone, Cognition,Bed Mobility, Transfers,Gait,Activity Tolerance Progress Towards Goals Progressing Toward Goals,Safe For Discharge Assessment Summary pt is doing well with mobility . caregiver training conducted and spouse was able to manage sling. pt plans to go home today. Goals Bed Mobility Goal Independent Transfer Goal Independent Gait Goal Independent Gait Distance 150 Other Goals up/down 12 steps L rail ascending mod I Days to Meet Goals 3 Frequency of Treatment Frequency Of Treatment Twice a Day Treatment Plan Physical Therapy Treatment Plan Bed Mobility Training,Transfer Training,Gait Training, Therapeutic Exercise,Balance Retraining,Post Op Education, Discharge Planning,Hot or Cold Pack,Neuromuscular Re-ed, Coordination Retraining,Manual Therapy Other Recommendations and Next Treatment c Focus Recommendations To Nursing Amount of Assist Needed Standby Assistance Discharge Recommendations PT Discharge Recommendations Home with Assistance, Outpatient PT Transportation Needs at Discharge Private Vehicle
--- NOTE | 2019-12-31 10:09 | PC.NURSE ---
Addendum entered by Arnie Blankenship R.N. 12/31/19 10:49: Patient educated about discharge instructions and given written material about medications. Patient also given 2 prescriptions, 5mg Oxycodone, and Docusate Sodium. Patient will be leaving via wheelchair and private vehicle with . Extra ice pack given to patient and dressing as well. Addendum entered by Arnie Blankenship R.N. 12/31/19 10:30: 300cc was ammt of emesis. Addendum entered by Arnie Blankenship R.N. 12/31/19 10:29: Patient had bout of emesis at 1020, Reglan given. VSS 120/71, P 70. Original Note: Patient in moderate shoulder pain 4/10. 2 [place] 5/325 given for pain PRN Q4. VSS. Just infused 2nd Vancomycin antibiotic. Patient resting comfortably w/ at bedside. Will be ready for discharge once physical therapy sees patient this AM.
[2019-12-31] MEDS: METOCLOPRAMIDE 10 MG/2 ML INJ IV (10:18)
== END 2019-12-31 10:52 | disposition home or self-care (01) | DRG 483 ==
PROVIDERS: Admitting Provider Orthopaedic Surgery; PCP Nurse Practitioner; Referring Provider Orthopaedic Surgery; Visit Provider Orthopaedic Surgery
PROC: 0RQJ0ZZ Repair Right Shoulder Joint, Open Approach (ICD-10-PCS; CPT 23472; principal; 2019-12-30 07:45)
DX: M19.011 Primary osteoarthritis, right shoulder (principal); M75.21 Bicipital tendinitis, right shoulder; Z85.05 Personal history of malignant neoplasm of liver; Z11.59 Encounter for screening for other viral diseases
CPT/HCPCS: 36415; 36592; 64450; 73030; 80202; 82565; 85027; 87635; 97116; 97161; 97530; C1776; A9270; J0330; J1100; J2250; J2405; J2704; J2765; J3010; J3370

== ENCOUNTER → 2020-02-13 11:00 | Outpatient (CLI) | payer MEDICARE, BC, SELFPAY ==
[2019-12-30 11:16] VITALS: BMI 20.4
--- NOTE | 2020-02-13 11:01 | DI.MRI.S_ITS ---
PROCEDURE: MR ABDOMEN WO/W CON INDICATIONS: History of liver cancer TECHNIQUE: Coronal HASTE, axial 2D FLASH in- and [id number]; axial breath-hold T2 FSE. Dynamic axial VIBE during the administration of contrast; post-contrast coronal VIBE or 2D FLASH with fat saturation from the hepatic dome to the iliac crests. Optional diffusion weighted imaging and ADC may be performed. COMPARISON: [facility], MR, MR ABDOMEN WO/W CON, 07/27/2019, 11:42. FINDINGS: Image quality: Excellent. Lung bases: No basal pleural effusions. Heart size is normal. Intact bilateral breast implants. Solid organs: Liver is normal in size and enhancement. There is a circumscribed 3.1 x 3.4 x 3.0 cm mass in the inferomedial aspect of segment V which demonstrates precontrast T1 and T2 signal fairly isointense to liver. There is mild peripheral arterial enhancement and internal hypoenhancement/washout on venous and delayed phases. The previously seen adjacent 8 mm lesion is no longer present. There is no restricted diffusion in the main mass. Gallbladder is normal . Biliary system is non dilated. Pancreas is normal in morphology. Spleen is normal in size and enhancement. Both kidneys demonstrate normal size and enhancement, without hydronephrosis. Nodes and vessels: No retroperitoneal or mesenteric adenopathy by size criteria. Aorta and inferior vena cava are normal in size. Bowel and peritoneum: Unenhanced bowel loops are normal in caliber. There is a posteromedial proximal gastric diverticulum present. No free fluid. Bones and soft tissues: No ventral hernias. Bone marrow is normal in overall signal. IMPRESSION: 1. Slight decrease in size of a centrally hypoenhancing liver mass in segment V. 2. Nonvisualization of sub cm adjacent hypervascular mass described previously. 3. No evidence of new hypervascular liver lesion. Dictated by: Cydney Herman M.D. on 02/13/2020 at 12:39 Approved by: Cydney Herman M.D. on 02/13/2020 at 13:11
== END ==
PROVIDERS: PCP Nurse Practitioner; Referring Provider Nurse Practitioner; Visit Provider Nurse Practitioner
DX: Z08 Encounter for follow-up examination after completed treatment for malignant neoplasm (principal); Z85.05 Personal history of malignant neoplasm of liver; R16.0 Hepatomegaly, not elsewhere classified
CPT/HCPCS: 74183

== ENCOUNTER → 2020-08-02 08:08 | Outpatient (CLI) | payer MEDICARE, BC, SELFPAY ==
[2019-12-30 11:16] VITALS: BMI 20.4
--- NOTE | 2020-08-02 08:09 | DI.US.S_ITS ---
PROCEDURE: US ABDOMEN COMPLETE INDICATIONS: HEPATOCELLULAR CARCINOMA TECHNIQUE: Real-time scanning was performed of the abdominal and retroperitoneal organs, with image documentation. COMPARISON: [facility], MR, MR ABDOMEN WO/W CON, 02/13/2020, 11:35. FINDINGS: Liver: There is a 3.0 x 3.0 x 3.5 cm heterogeneous solid mass in the anterior aspect of the inferior right thyroid lobe, not significantly changed in size when compared to the MRI dated 02/13/2020. Liver is normal in size and homogeneous in echotexture. Gallbladder: No gallstones. No gallbladder wall thickening, pericholecystic fluid or sonographic Pitts's sign. Biliary ducts: Intrahepatic bile ducts are non-dilated. Extrahepatic bile duct caliber measures 3.1 mm. Normal is 6-7 mm or less in diameter, or 10 mm or less post-cholecystectomy. Pancreas: Visualized portions of the pancreas are sonographically normal. Spleen: Spleen is normal in size and homogeneous in echotexture. Kidneys: Kidneys are normal in size and echotexture. Right kidney measures 10.1 cm long; left kidney measures 9.3 cm long. No hydronephrosis or nephrolithiasis. No solid masses. Aorta: Visualized aorta is normal in caliber at less than 3 cm. Iliacs: Proximal common iliac arteries are normal in caliber at less than 2.5 cm. IVC: Intrahepatic inferior vena cava is patent. Miscellaneous: No free abdominal fluid. IMPRESSION: 1. No significant change in the solid heterogeneous mass in the inferior right hepatic lobe, consistent with hepatocellular carcinoma. Dictated by: Nate Covarrubias M.D. on 08/02/2020 at 10:32 Approved by: Nate Covarrubias M.D. on 08/02/2020 at 10:36
== END ==
PROVIDERS: PCP Nurse Practitioner; Referring Provider Internal Medicine Hematology & Oncology; Visit Provider Internal Medicine Hematology & Oncology
DX: C22.9 Malignant neoplasm of liver, not specified as primary or secondary (principal)
CPT/HCPCS: 76700

== ENCOUNTER → 2021-01-09 13:56 | Outpatient (CLI) | payer MEDICARE, BC, SELFPAY ==
[2019-12-30 11:16] VITALS: BMI 20.4
--- NOTE | 2021-01-09 | DI.MG.S_ITS ---
BILATERAL DIGITAL SCREENING MAMMOGRAM 3D/2D WITH CAD WITH AUGMENTATION: 01/09/2021 CLINICAL: Routine screening. Comparison is made to exams dated: 12/08/2019 mammogram - [facility], 08/02/2018 mammogram, and 07/23/2017 mammogram - [facility]. The tissue of both breasts is heterogeneously dense. This may lower the sensitivity of mammography. Current study was also evaluated with a Computer Aided Detection (CAD) system. Right breast implant is present. Left breast implant is stable. There are benign diffuse calcifications in both breasts. No significant masses, calcifications, or other findings are seen in either breast. There has been no significant interval change. IMPRESSION: BENIGN There is no mammographic evidence of malignancy. A 1 year screening mammogram is recommended. This exam was interpreted at Station ID: [id number]. NOTE: For mammograms, a report in lay terms will be sent to the patient. Approximately 15% of breast malignancies will not be visualized mammographically. In the management of a palpable breast mass, a negative mammogram must not discourage biopsy of a clinically suspicious lesion. Electronically Signed By: Les Mancia M.D., jr/kaela:01/09/2021 14:32:28 letter sent: Normal Exam ACR BI-RADS Category 2: Benign Finding(s) [id number]
== END ==
PROVIDERS: PCP Nurse Practitioner; Referring Provider Nurse Practitioner; Visit Provider Nurse Practitioner
DX: Z12.31 Encounter for screening mammogram for malignant neoplasm of breast (principal)
CPT/HCPCS: 77063; 77067

== ENCOUNTER → 2021-02-11 10:51 | Outpatient (CLI) | payer MEDICARE, BC, SELFPAY ==
[2019-12-30 11:16] VITALS: BMI 20.4
--- NOTE | 2021-02-11 10:52 | DI.MRI.S_ITS ---
PROCEDURE: MR ABDOMEN WO/W CON INDICATIONS: hepatocelluar ca TECHNIQUE: Coronal HASTE, axial 2D FLASH in- and [id number]; axial breath-hold T2 FSE. Dynamic axial VIBE during the administration of contrast; post-contrast coronal VIBE or 2D FLASH with fat saturation from the hepatic dome to the iliac crests. Optional diffusion weighted imaging and ADC may be performed. COMPARISON: [facility], MR, MR ABDOMEN WO/W CON, 07/27/2019, 11:42. [facility], MR, MR ABDOMEN WO/W CON, 02/13/2020, 11:35. FINDINGS: Image quality: Excellent. Lung bases: No basal pleural effusions. Heart size is normal. Solid organs: Liver is normal size with slight hypertrophy of the left hepatic lobe. Mildly increased T1 signal on out of phase imaging indicating iron deposition.. Well-defined ovoid liver mass in segment IV/V measures 3.3 x 2.8 x 3.0 cm, minimally decreased in size. There is heterogeneous T1 signal, mainly isointense to liver. Postcontrast, there is trace peripheral arterial enhancement, and hypoenhancement on venous and delayed phase imaging trace enhancement uniformly on the periphery on delayed phase imaging, similar compared to prior. An 8 mm lesion seen well on arterial phase post-contrast imaging in the inferomedial segment V is present, however this is ill-defined. No definite focal washout on delayed imaging. No new arterially enhancing lesions. Gallbladder is partially decompressed but appears within normal limits, without stones or wall thickening. Biliary system is non dilated. Pancreas is normal in morphology. Spleen is normal in size (9.8 cm) and enhancement. No adrenal nodules. Both kidneys demonstrate normal size and enhancement, without hydronephrosis. Nodes and vessels: No retroperitoneal or mesenteric adenopathy by size criteria. Aorta and inferior vena cava are normal in size. Bowel and peritoneum: There is a gas containing gastric diverticulum along the posterior gastric cardia. Unenhanced stomach and bowel loops are otherwise normal in caliber. No free fluid. Bones and soft tissues: No ventral hernias. Bone marrow is normal in overall signal. Mild degenerative disc and endplate changes throughout the visible spine. Partially imaged breast implants. IMPRESSION: 1. Minimally decreased size of dominant segment V liver lesion demonstrating stable, trace peripheral enhancement and otherwise hypoenhancement postcontrast. 2. 8 mm arterial subcapsular segment V lesion is questionable, and may be due to volume averaging from adjacent colonic diverticula. Small hepatocellular carcinoma cannot be excluded. LR-three. 3. No new hepatic lesions. Dictated by: Cydney Herman M.D. on 02/11/2021 at 13:00 Approved by: Cydney Herman M.D. on 02/11/2021 at 13:37
== END ==
PROVIDERS: PCP Nurse Practitioner; Referring Provider Internal Medicine Hematology & Oncology; Visit Provider Internal Medicine Hematology & Oncology
DX: C22.9 Malignant neoplasm of liver, not specified as primary or secondary (principal); K31.4 Gastric diverticulum
CPT/HCPCS: 74183

== ENCOUNTER → 2021-05-31 15:29 | Outpatient (CLI) | payer MEDICARE, BC, SELFPAY ==
[2019-12-30 11:16] VITALS: BMI 20.4
--- NOTE | 2021-05-31 15:32 | DI.MRI.S_ITS ---
PROCEDURE: MR ABDOMEN WO/W CON INDICATIONS: hepatocellular carcinoma TECHNIQUE: Coronal HASTE, axial 2D FLASH in- and [id number]; axial breath-hold T2 FSE. Dynamic axial VIBE during the administration of contrast; post-contrast coronal VIBE or 2D FLASH with fat saturation from the hepatic dome to the iliac crests. Optional diffusion weighted imaging and ADC may be performed. COMPARISON: [facility], MR, MR ABDOMEN WO/W CON, 07/27/2019, 11:42. [facility], MR, MR ABDOMEN WO/W CON, 02/13/2020, 11:35. [facility], MR, MR ABDOMEN WO/W CON, 02/11/2021, 11:10. FINDINGS: Image quality: There is mild motion artifact. Lung bases: No basal pleural effusions. Heart size is normal. Bilateral breast implants are partially visualized and appear grossly intact. Solid organs: Anteriorly within segment 5 of the right hepatic lobe, there is a circumscribed oval slightly heterogeneous mass redemonstrated. This measures approximately 3.0 x 2.2 cm in transverse dimension by 3.4 cm in craniocaudal dimension. Although there is heterogeneous internal signal, there is no definite internal enhancement following contrast administration. Findings are consistent with sequelae of treated hepatocellular carcinoma likely from prior radiofrequency ablation. More inferiorly within segment 5, there is a smaller lesion demonstrating mild washout on delayed images measuring up to approximately 1.0 cm without definite corresponding hypervascular enhancement or hypointense T2 signal. The findings are compatible with a LI-RADS 3 lesion and are again suspicious for a hepatoma. No definite new suspicious hepatic mass. There is mild prominence of the left portal veins centrally without a definite associated mass. Gallbladder is surgically absent. Biliary system is non dilated. Pancreas is normal in morphology without peripancreatic edema or fluid collections. The pancreatic duct is nondistended. The spleen is normal in size. No adrenal nodules. Kidneys demonstrate no hydronephrosis. Nodes and vessels: No retroperitoneal or mesenteric adenopathy by size criteria. Aorta and inferior vena cava are normal in size. Bowel and peritoneum: Visualized bowel loops are normal in caliber. No free fluid. Bones and soft tissues: No ventral hernias. Bone marrow is normal in overall signal. IMPRESSION: 1. Heterogeneous mass in segment 5 of the right hepatic lobe consistent with treated disease redemonstrated without definite internal enhancement or change in size. LR-TR nonviable. 2. Smaller additional lesion demonstrating mild washout in segment 5 also appears similar to the prior studies. LR-3. Recommend continued attention on follow-up. Dictated by: Andrea Betancourt M.D. on 06/01/2021 at 0:58 Approved by: Andrea Betancourt M.D. on 06/01/2021 at 1:25
== END ==
PROVIDERS: PCP Nurse Practitioner; Referring Provider Internal Medicine Hematology & Oncology; Visit Provider Internal Medicine Hematology & Oncology
DX: C22.9 Malignant neoplasm of liver, not specified as primary or secondary (principal)
CPT/HCPCS: 74183; A9579

== ENCOUNTER → 2021-06-10 12:58 | Outpatient (CLI) | payer MEDICARE, BC, SELFPAY ==
[2019-12-30 11:16] VITALS: BMI 20.4
--- NOTE | 2021-06-10 13:05 | DI.CT.S_ITS ---
PROCEDURE: CT CHEST WO CON INDICATIONS: hepatocelluar carcinoma, rising AFP TECHNIQUE: Noncontrast 5 mm thick sections acquired from the pulmonary apices to the posterior costophrenic angles. 1 mm lung window, 5 mm thick coronal and sagittal and 7 mm axial MIP reformats were then acquired. For radiation dose reduction, the following was used: automated exposure control, adjustment of mA and/or kV according to patient size. COMPARISON: [facility], MR, MR ABDOMEN WO/W CON, 05/31/2021, 15:39. [facility], CT, CT SHOULDER RIGHT WITHOUT CONTRAST, 01/10/2021, 11:20. FINDINGS: Image quality: Excellent. Lungs and pleura: No acute air space opacities. 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 Scattered atelectasis and scarring in periphery of bilateral lung sebastian are seen. No suspicious pulmonary nodule or mass is noted. No pleural effusions or pneumothorax. Central and peripheral airways are patent and normal in caliber. Mediastinum: Heart size is normal. No pericardial effusion. No mediastinal adenopathy by size criteria. Thoracic aorta and central pulmonary arteries are normal in size. Esophagus is normal in caliber. No hiatal hernia. Bones and chest wall: No suspicious bony lesions. No vertebral body compression fractures. Degenerative endplate changes throughout thoracic spine and upper lumbar spine is seen. No axillary or supraclavicular adenopathy by size criteria. Thyroid gland is within normal limits. Bilateral breast prosthesis are seen and are grossly intact. Innumerable tiny soft tissue calcifications along bilateral anterior chest wall extending to bilateral axilla are seen. Similar calcifications also seen in bilateral breasts soft tissue unchanged from prior study. Abdomen: Rest of the visualized partially calcified mass involving anterior segment of right hepatic lobe is again seen better evaluated on previous MRI of abdomen study. upper abdominal solid organs and bowel loops appear normal in the absence of contrast. IMPRESSION: 1. Chronic appearing right a pickle pleural thickening and fibrosis unchanged from prior CT study. Scattered scarring/atelectasis in periphery of bilateral lung sebastian. No pleural effusion or pneumothorax. Airway is patent. 2. No mediastinal or hilar lymphadenopathy by size criteria. 3. Extensive bilateral chest wall and breast soft tissue calcifications. Bilateral breast implants are grossly intact. Dictated by: Steve Up M.D. on 06/10/2021 at 13:49 Approved by: Steve Up M.D. on 06/10/2021 at 14:22
== END ==
PROVIDERS: PCP Nurse Practitioner; Referring Provider Internal Medicine Hematology & Oncology; Visit Provider Internal Medicine Hematology & Oncology
DX: C22.9 Malignant neoplasm of liver, not specified as primary or secondary (principal); Z98.82 Breast implant status
CPT/HCPCS: 71250

== ENCOUNTER → 2021-07-29 09:17 | Outpatient (CLI) | payer MEDICARE, BC, SELFPAY ==
[2019-12-30 11:16] VITALS: BMI 20.4
--- NOTE | 2021-07-29 09:20 | DI.CT.S_ITS ---
PROCEDURE: CT ABDOMEN WO/W CON INDICATIONS: liver cancer, rising AFP TECHNIQUE: 4 phase scanning was performed. Non-contrast 5 mm axial sections acquired from the diaphragm to the iliac crests. Following the administration of intravenous contrast, 5 mm thick arterial-phase, portal venous-phase, and 5-minute delayed phase images were acquired through the liver. 5 mm thick coronal and sagittal reformats were performed. For radiation dose reduction, the following was used: automated exposure control, adjustment of mA and/or kV according to patient size. COMPARISON: [facility], MR, MR ABDOMEN WO/W CON, 02/13/2020, 11:35. [facility], MR, MR ABDOMEN WO/W CON, 07/27/2019, 11:42. [facility], CT, CT CHEST WO CON, 06/10/2021, 13:02. [facility], MR, MR ABDOMEN WO/W CON, 05/31/2021, 15:39. FINDINGS: Image quality: Excellent. Lung bases: Lung bases are clear. Heart size is normal. Breast implants. Liver: Segment 5 treated lesion measuring 3.1 x 2.3 cm, (09/06), previously 3.4 x 2.4 cm. There is extensive heterogeneous calcification. No focal enhancement or washout appreciated. LR TR nonviable. Segment 5 inferior medial observation measuring 1.2 x 0.8 cm, (09/10), previously 1.1 x 0.8 cm on 05/31/2021, and not appreciated on 02/13/2020. Arterial hyperenhancement. No washout. No pseudo capsule. LR 3. No new lesions identified. Liver is normal in size. Other solid organs: Gallbladder is unremarkable. Biliary system is non dilated. Pancreas is normal in morphology. Spleen is normal in size and enhancement. No adrenal nodules. Both kidneys demonstrate normal size and enhancement, without hydronephrosis or nephrolithiasis. Nodes and vessels: No retroperitoneal or mesenteric adenopathy by size criteria. Aorta and inferior vena cava are normal in size. Mild plaque. Conventional and patent hepatic arterial anatomy. Vascular coils adjacent to the liver result in beam hardening artifact. Portal vein is patent. Bowel and peritoneum: Unenhanced bowel loops are normal in caliber. No free fluid or air. Bones: No suspicious bony lesions. No vertebral body compression fractures. Multilevel DDD. Grade 1 retrolisthesis of L1 on L2. Grade 1 anterolisthesis 5. Miscellaneous: No ventral hernias. IMPRESSION: 1. Segment 5 inferior medial observation measuring 1.2 cm is unchanged. LR 3. 2. Segment 5 treated lesion is not significantly changed. LR TR nonviable. 3. No adenopathy. No ascites. Dictated by: León Ang M.D. on 07/29/2021 at 11:47 Approved by: León Ang M.D. on 07/29/2021 at 12:45
[2021-07-29 10:38] LABS: Add Manual Diff / Slide Review NO; Basophils Absolute Auto 0 /uL (0-100); Basophils Percent Auto 1.1 % (0-2); Eosinophils Absolute Auto 0 /uL (0-450); Eosinophils Percent Auto 0.7 % (2-4); Hematocrit 45.4 % (36-46); Hemoglobin 15.6 g/dL (12.0-16.0); Lymphocytes Absolute Auto 900 /uL (1100-4500); Mean Corpuscular HGB Conc 34.3 % (30-36); Mean Corpuscular Hemoglobin 32.1 PG (26-34); Mean Corpuscular Volume 93.5 fL (80-100); Monocytes Absolute Auto 400 /uL (0-900); Monocytes Percent Auto 8.7 % (3-14); Neutrophils Absolute Auto 2900 /uL (1500-7000); Neutrophils Percent Auto 67.5 % (50-75); Platelet Count 191 X10^3/uL (150-400); Red Blood Cell Count 4.86 X10^6/uL (4.0-5.2); Red Cell Distribution Width 14.2 % (11.6-14.8); White Blood Cell Count 4.2 X10^3/uL (4.5-11.0)
[2021-07-29 11:26] LABS: Alanine Aminotransferase 19 IU/L (<35); Albumin 4.6 g/dL (3.5-5.0); Albumin Globulin Ratio 1.9 (1.0-2.8); Alkaline Phosphatase 86 U/L (38-126); Aspartate Aminotransferase 30 IU/L (14-36); BUN Creatinine Ratio 16.9 (6-22); Bilirubin Total 0.8 mg/dL (0.2-1.3); Blood Urea Nitrogen 15 mg/dL (7-17); Calcium 9.3 mg/dL (8.4-10.2); Carbon Dioxide 31 mmol/L (22-32); Chloride 102 mmol/L (98-107); Estimated Glomerular Filt Rate > 60.0 mL/min (>60); Globulin 2.4 g/dL (1.7-4.1); Glucose 96 mg/dL (80-110); HEMOLYSIS < 15 (0-50); Potassium 4.2 mmol/L (3.4-5.1); Sodium 138 mmol/L (137-145)
[2021-07-30 07:33] LABS: Alpha Fetoprotein 14.2 ng/mL (0.0-9.2)
== END ==
PROVIDERS: PCP Nurse Practitioner; Referring Provider Internal Medicine Hematology & Oncology; Visit Provider Internal Medicine Hematology & Oncology
DX: C22.9 Malignant neoplasm of liver, not specified as primary or secondary (principal); R77.2 Abnormality of alphafetoprotein
CPT/HCPCS: 36415; 74170; 80053; 82105; 85025; Q9967

== ENCOUNTER → 2021-12-10 08:55 | Outpatient (CLI) | payer MEDICARE, BC, SELFPAY ==
[2019-12-30 11:16] VITALS: BMI 20.4
[2021-12-10 09:19] LABS: Add Manual Diff / Slide Review NO; Basophils Absolute Auto 0 /uL (0-100); Basophils Percent Auto 0.8 % (0-2); Eosinophils Absolute Auto 100 /uL (0-450); Eosinophils Percent Auto 1.4 % (2-4); Hematocrit 44.9 % (36-46); Hemoglobin 15.3 g/dL (12.0-16.0); Lymphocytes Absolute Auto 1000 /uL (1100-4500); Lymphocytes Percent Auto 22.4 % (25-40); Mean Corpuscular HGB Conc 34.1 % (30-36); Mean Corpuscular Hemoglobin 32.1 PG (26-34); Mean Corpuscular Volume 94.1 fL (80-100); Monocytes Absolute Auto 500 /uL (0-900); Monocytes Percent Auto 10.4 % (3-14); Neutrophils Absolute Auto 2900 /uL (1500-7000); Platelet Count 198 X10^3/uL (150-400); Red Blood Cell Count 4.77 X10^6/uL (4.0-5.2); Red Cell Distribution Width 14.1 % (11.6-14.8); White Blood Cell Count 4.4 X10^3/uL (4.5-11.0)
[2021-12-10 09:30] LABS: Alanine Aminotransferase 20 IU/L (<35); Albumin 4.4 g/dL (3.5-5.0); Albumin Globulin Ratio 1.9 (1.0-2.8); Alkaline Phosphatase 80 U/L (38-126); Aspartate Aminotransferase 28 IU/L (14-36); Bilirubin Total 0.5 mg/dL (0.2-1.3); Blood Urea Nitrogen 18 mg/dL (7-17); Carbon Dioxide 30 mmol/L (22-32); Chloride 103 mmol/L (98-107); Estimated Glomerular Filt Rate > 60 mL/min (>60); Globulin 2.3 g/dL (1.7-4.1); Glucose 70 mg/dL (80-110); HEMOLYSIS < 15 (0-50); Sodium 139 mmol/L (137-145); Total Protein 6.7 g/dL (6.3-8.2)
--- NOTE | 2021-12-10 09:53 | DI.CT.S_ITS ---
PROCEDURE: CT ABDOMEN WO/W CON INDICATIONS: hepatocelluar carcinoma TECHNIQUE: 4 phase scanning was performed. Non-contrast 5 mm axial sections acquired from the diaphragm to the iliac crests. Following the administration of intravenous contrast, 5 mm thick arterial-phase, portal venous-phase, and 5-minute delayed phase images were acquired through the liver. 5 mm thick coronal and sagittal reformats were performed. For radiation dose reduction, the following was used: automated exposure control, adjustment of mA and/or kV according to patient size. COMPARISON: [facility], CT, CT ABDOMEN WO/W CON, 07/29/2021, 11:43. FINDINGS: Image quality: Excellent. Lung bases: Clear lung bases. Normal size heart. No hiatal hernia. Partially imaged breast implants. Numerous subcutaneous calcifications overlying the chest wall. Liver: Inferomedial segment V lesion measures 1.5 x 1.0 cm, previously 1.3 x 0.9 cm. No significant washout or pseudo capsule. No new arterially hyperenhancing lesions. Heterogeneous, coarsely calcified treated liver lesion in segment V measures 3.2 x 2.4 cm, stable, and there is no enhancement. Other solid organs: Gallbladder is normal. Biliary system is non dilated. Pancreas is normal in morphology. Spleen is normal in size and enhancement. No adrenal nodules. Both kidneys demonstrate normal size and enhancement, without hydronephrosis or nephrolithiasis. Nonobstructing punctate right lower pole intrarenal calcification. Nodes and vessels: No retroperitoneal or mesenteric adenopathy by size criteria. Aorta and inferior vena cava are normal in size. Bowel and peritoneum: Unenhanced bowel loops are normal in caliber. No free fluid or air. Bones: Degenerative disc sclerosis L1-2, L5-S1, and degenerative anterolisthesis L4-5. No suspicious bone lesions. Miscellaneous: No ventral hernias. IMPRESSION: 1. Increased size of inferomedial segment V lesion, however not meeting interval growth criteria as established by LI-RADs system. This is still considered considered a Li-RADS three lesion. 2. Stable appearance of treated liver lesion, LR TR nonviable. 3. No new liver lesions. 4. Nonobstructing right intrarenal calculus. Dictated by: Cydney Herman M.D. on 12/10/2021 at 14:22 Approved by: Cydney Herman M.D. on 12/10/2021 at 15:20
[2021-12-11 07:36] LABS: Alpha Fetoprotein 23.2 ng/mL (0.0-9.2)
== END ==
PROVIDERS: PCP Nurse Practitioner; Referring Provider Internal Medicine Hematology & Oncology; Visit Provider Internal Medicine Hematology & Oncology
DX: C22.9 Malignant neoplasm of liver, not specified as primary or secondary (principal); N20.0 Calculus of kidney
CPT/HCPCS: 36415; 74170; 80053; 82105; 85025; Q9967

== ENCOUNTER → 2022-01-10 13:55 | Outpatient (CLI) | payer MEDICARE, BC, SELFPAY ==
[2019-12-30 11:16] VITALS: BMI 20.4
--- NOTE | 2022-01-10 | DI.MG.S_ITS ---
BILATERAL DIGITAL SCREENING MAMMOGRAM 3D/2D WITH CAD WITH AUGMENTATION: 01/10/2022 CLINICAL: Routine screening. Comparison is made to exams dated: 01/09/2021 mammogram, 12/08/2019 mammogram - [facility], and 08/02/2018 mammogram - [facility]. Both breasts are heterogeneously dense, which may obscure small masses (category c / 51-75% glandular tissue). Current study was also evaluated with a Computer Aided Detection (CAD) system. Bilateral breast implants are present. There are benign diffuse calcifications in both breasts. No significant masses, calcifications, or other findings are seen in either breast. There has been no significant interval change. IMPRESSION: BENIGN There is no mammographic evidence of malignancy. A 1 year screening mammogram is recommended. Based on the Tyrer Cuzick model (a risk assessment model) the patient's lifetime risk is 2.9% and her 10 year risk is 0.0%. According to the ACR, ACS, and NCCN guidelines, an annual breast MRI exam along with mammogram is recommended if the patient's lifetime risk is 20% or greater. This exam was interpreted at Station ID: [id number]. NOTE: For mammograms, a report in lay terms will be sent to the patient. Approximately 15% of breast malignancies will not be visualized mammographically. In the management of a palpable breast mass, a negative mammogram must not discourage biopsy of a clinically suspicious lesion. Electronically Signed By: Sanjay sharma/kaela:01/10/2022 16:28:18 letter sent: Normal Exam ACR BI-RADS Category 2: Benign Finding(s) 3342F
== END ==
PROVIDERS: PCP Nurse Practitioner; Referring Provider Nurse Practitioner; Visit Provider Nurse Practitioner
DX: Z12.31 Encounter for screening mammogram for malignant neoplasm of breast (principal)
CPT/HCPCS: 77063; 77067

== ENCOUNTER → 2022-03-18 10:37 | Outpatient (CLI) | payer MEDICARE, BC, SELFPAY ==
[2019-12-30 11:16] VITALS: BMI 20.4
--- NOTE | 2022-03-18 10:41 | DI.CT.S_ITS ---
PROCEDURE: CT ABDOMEN LIVER PROTOCOL INDICATIONS: hepatocellular carcinoma TECHNIQUE: 4 phase scanning was performed. Non-contrast 5 mm axial sections acquired from the diaphragm to the iliac crests. Following the administration of intravenous contrast, 5 mm thick arterial-phase, portal venous-phase, and 5-minute delayed phase images were acquired through the liver. 5 mm thick coronal and sagittal reformats were performed. For radiation dose reduction, the following was used: automated exposure control, adjustment of mA and/or kV according to patient size. COMPARISON: [facility], CT, CT ABDOMEN WO/W CON, 12/10/2021, 9:28. FINDINGS: Image quality: Excellent. Lung bases: Scattered scarring/atelectasis. There are subcutaneous calcifications and breast implants. Nonspecific distal esophageal wall thickening and epiphrenic diverticulum. Liver: Stable treated region with calcifications in segment 5. LR TR nonviable. Inferior segment 5/6 lesion measuring 16 x 11 mm (3/38, 9/38), with hypervascularity, pseudo capsule, and washout. LR 5. This previously measured 12 x 11 mm. Other solid organs: Gallbladder is within normal limits. No biliary ductal dilation. The pancreas is within normal limits. No splenomegaly. There is a posterior gastric diverticulum. No hydronephrosis. Intrarenal calculus nonobstructing, is present. Nodes and vessels: No abdominal aortic aneurysm. The main portal vein is patent. Bowel and peritoneum: No pathologic ascites. No bowel obstruction. Bones: Degenerative changes without focal suspicious osseous lesions. Multi level spondylolisthesis. Miscellaneous: No ventral hernias. IMPRESSION: Slowly enlarging LR 5 lesion at the inferior tip of the liver. Calcified treated lesion near the hilum. LR TR nonviable. Other incidental and favored chronic findings as above. Dictated by: Sanjay Lea M.D. on 03/18/2022 at 12:31 Approved by: Sanjay Lea M.D. on 03/18/2022 at 12:40
== END ==
PROVIDERS: PCP Nurse Practitioner; Referring Provider Internal Medicine Hematology & Oncology; Visit Provider Internal Medicine Hematology & Oncology
DX: C22.9 Malignant neoplasm of liver, not specified as primary or secondary (principal); K76.9 Liver disease, unspecified
CPT/HCPCS: 74170; Q9967

== ENCOUNTER → 2022-06-20 11:24 | Outpatient (CLI) | payer MEDICARE, BC, SELFPAY ==
[2019-12-30 11:16] VITALS: BMI 20.4
--- NOTE | 2022-06-20 11:26 | DI.CT.S_ITS ---
PROCEDURE: CT ABDOMEN LIVER PROTOCOL INDICATIONS: HCC TECHNIQUE: 4 phase scanning was performed. Non-contrast 5 mm axial sections acquired from the diaphragm to the iliac crests. Following the administration of intravenous contrast, 5 mm thick arterial-phase, portal venous-phase, and 5-minute delayed phase images were acquired through the liver. 5 mm thick coronal and sagittal reformats were performed. For radiation dose reduction, the following was used: automated exposure control, adjustment of mA and/or kV according to patient size. COMPARISON: [facility], CT, CT ABDOMEN LIVER PROTOCOL, 03/18/2022, 10:43. FINDINGS: Image quality: Good Lower chest: Scattered scarring/atelectasis. Patulous distal esophagus, nonspecific. Breast implants, and soft tissue thickening around the implants, particularly on the left side, correlate with any prior mammogram. Numerous chest wall calcifications as before. Solid organs: Similar size and appearance of the treated calcified region in segment 5. Hypervascular lesion in the inferior segment 5/6 measures 1.6 by 1.1 cm (/24). This lesion has washout. LR 5. Gallbladder is collapsed no pathologic dilation of the pancreatic duct or biliary tree. No splenomegaly. Posterior gastric diverticulum adjacent to the left adrenal gland, no discrete adrenal nodule. No hydronephrosis. Bilateral pelviectasis. Vessels and lymph nodes: No abdominal aortic aneurysm. There are embolization coils in the upper abdomen. The main portal vein is patent. Bowel and peritoneum: No pathologic ascites or bowel obstruction. Body wall: Unremarkable Bones: Degenerative changes without acute or suspicious osseous finding. IMPRESSION: Stable LR 5 lesion in the inferior portion of segment 5/6. Calcified stable, probably treated lesion near the hepatic hilum. Overall stable CT, with other findings above. Dictated by: Sanjay Lea M.D. on 06/20/2022 at 13:21 Approved by: Sanjay Lea M.D. on 06/20/2022 at 13:28
== END ==
PROVIDERS: PCP Nurse Practitioner; Referring Provider Internal Medicine Hematology & Oncology; Visit Provider Internal Medicine Hematology & Oncology
DX: C22.9 Malignant neoplasm of liver, not specified as primary or secondary (principal)
CPT/HCPCS: 74170

== ENCOUNTER → 2022-10-02 12:11 | Outpatient (CLI) | payer MEDICARE, BC, SELFPAY ==
[2019-12-30 11:16] VITALS: BMI 20.4
--- NOTE | 2022-10-02 12:22 | DI.DEXA.S_ITS ---
Bone Density Report Name: FLORI HILL Age: 82 Sex: Female Ethnicity: White Date of : 1940 Indication: postmenopausal; screening for osteoporosis; Referring Provider: LIANNA HUNTER Study: Bone densitometry was performed. Exam Date: October 02, 2022 Accession number: [id number] Bone Density: Region BMD T-score Z-score Classification AP Spine(L1, L3, L4) 0.986 -0.6 2.1 Normal Femoral Neck (Left) 0.662 -1.7 0.6 Osteopenia Total Hip (Left) 0.748 -1.6 0.5 Osteopenia Femoral Neck (Right) 0.633 -1.9 0.4 Osteopenia Total Hip (Right) 0.749 -1.6 0.5 Osteopenia Total Hip Mean 0.749 -1.6 0.5 Osteopenia World Health Organization criteria for BMD impression classify patients as: Normal (T-score at or above -1.0), Osteopenia (T-score between -1.0 and -2.5), or Osteoporosis (T-score at or below -2.5). 10-year Fracture Risk(1): Major Osteoporotic Fracture 13% Hip Fracture 4.0% Reported Risk Factors: [place] (), Neck BMD=0.633, BMI=20.6 (1) FRAX(R) Version 3.08. Fracture probability calculated for an untreated patient. Fracture probability may be lower if the patient has received treatment. Impression: The patient has low bone mass, based on the Right Femoral Neck T-score. The patient has an estimated ten-year risk of hip fracture of 4% and an estimated ten-year risk of major fracture of 13%, based on the WHO FRAX algorithm. Discussion: BONE DENSITY IS LOW AT ONE OR MORE SKELETAL SITES. THE PATIENT'S BMD AND CLINICAL RISK FACTORS CONTRIBUTE TO THIS PATIENT'S INCREASED RISK OF FRACTURE. This patient's lowest T-score is low at one or more skeletal sites. It meets the World Health Organization's (WHO) criteria for ?low bone mass? (T-score between -1.0 and -2.5). The patient's 10-year risk of hip fracture as calculated by FRAX exceeds the threshold where pharmacological therapy is recommended by the National Osteoporosis Foundation (NOF). However, all treatment decisions require clinical judgment and consideration of individual patient factors, including patient preferences, comorbidities, previous drug use, risk factors not captured in the FRAX model (e.g., frailty, falls, vitamin D deficiency, increased bone turnover, interval significant decline in bone density) and possible under or overestimation of fracture risk by FRAX. The patient should follow a healthful lifestyle (good nutrition with adequate calcium and vitamin D, and appropriate weight-bearing exercise). Follow-Up: Consider a repeat BMD and Vertebral Fracture Assessment (VFA) exam in 2 years or sooner if medically necessary, to reassess this patient's status. Reported by: ERMA SORTO M.D. on 10/02/2022 12:35:00 PM.
== END ==
PROVIDERS: PCP Nurse Practitioner; Referring Provider Family Medicine; Visit Provider Family Medicine
DX: M85.89 Other specified disorders of bone density and structure, multiple sites (principal); Z13.820 Encounter for screening for osteoporosis
CPT/HCPCS: 77080

== ENCOUNTER → 2023-01-30 12:41 | Outpatient (CLI) | payer MEDICARE, BC, SELFPAY ==
[2019-12-30 11:16] VITALS: BMI 20.4
--- NOTE | 2023-01-30 | DI.MG.S_ITS ---
BILATERAL DIGITAL SCREENING MAMMOGRAM 3D/2D WITH CAD WITH AUGMENTATION: 01/30/2023 CLINICAL: Routine screening. Comparison is made to exams dated: 01/10/2022 mammogram, 01/09/2021 mammogram, and 12/08/2019 mammogram - [facility]. Both breasts are heterogeneously dense, which may obscure small masses (category c / 51-75% glandular tissue). Current study was also evaluated with a Computer Aided Detection (CAD) system. Bilateral breast implants are present. There are benign diffuse calcifications in both breasts. No significant masses, calcifications, or other findings are seen in either breast. There has been no significant interval change. IMPRESSION: BENIGN There is no mammographic evidence of malignancy. A 1 year screening mammogram is recommended. Based on the Tyrer Cuzick model (a risk assessment model) the patient's lifetime risk is 2.4% and her 10 year risk is 0.0%. According to the ACR, ACS, and NCCN guidelines, an annual breast MRI exam along with mammogram is recommended if the patient's lifetime risk is 20% or greater. This exam was interpreted at Station ID: [id number]. NOTE: For mammograms, a report in lay terms will be sent to the patient. Approximately 15% of breast malignancies will not be visualized mammographically. In the management of a palpable breast mass, a negative mammogram must not discourage biopsy of a clinically suspicious lesion. Electronically Signed By: Nate leija/kaela:01/30/2023 15:56:23 letter sent: Normal Exam ACR BI-RADS Category 2: Benign Finding(s) 3342F
== END ==
PROVIDERS: PCP Nurse Practitioner; Referring Provider Nurse Practitioner; Visit Provider Nurse Practitioner
DX: Z12.31 Encounter for screening mammogram for malignant neoplasm of breast (principal)
CPT/HCPCS: 77063; 77067

== ENCOUNTER → 2024-02-03 12:46 | Outpatient (CLI) | payer MEDICARE, BC, SELFPAY ==
[2019-12-30 11:16] VITALS: BMI 20.4
--- NOTE | 2024-02-03 12:47 | DI.MG.S_ITS ---
BILATERAL DIGITAL SCREENING MAMMOGRAM 3D/2D WITH CAD WITH AUGMENTATION: 02/03/2024 CLINICAL: Routine screening. Comparison is made to exams dated: 01/30/2023 mammogram, 01/10/2022 mammogram, and 01/09/2021 mammogram - [facility]. The breasts are heterogeneously dense, which may obscure small masses (category c / 51-75% glandular tissue). Current study was also evaluated with a Computer Aided Detection (CAD) system. Bilateral breast implants are stable. There are stable benign diffuse calcifications in both breasts. No significant masses, calcifications, or other findings are seen in either breast. There has been no significant interval change. IMPRESSION: BENIGN There is no mammographic evidence of malignancy. A 1 year screening mammogram is recommended. Based on the Tyrer Cuzick model (a risk assessment model) the patient's lifetime risk is 1.2% and her 10 year risk is 0.0%. According to the ACR, ACS, and NCCN guidelines, an annual breast MRI exam along with mammogram is recommended if the patient's lifetime risk is 20% or greater. This exam was interpreted at Station ID: [id number]. NOTE: For mammograms, a report in lay terms will be sent to the patient. Approximately 15% of breast malignancies will not be visualized mammographically. In the management of a palpable breast mass, a negative mammogram must not discourage biopsy of a clinically suspicious lesion. Electronically Signed By: Cydney walden/kaela:02/03/2024 17:58:23 letter sent: Normal Exam ACR BI-RADS Category 2: Benign 3342F
== END ==
LOC: MAMMO 12:47
PROVIDERS: PCP Nurse Practitioner; Referring Provider Nurse Practitioner; Visit Provider Nurse Practitioner
DX: Z12.31 Encounter for screening mammogram for malignant neoplasm of breast (principal); R92.333 Mammographic heterogeneous density, bilateral breasts
CPT/HCPCS: 77063; 77067

== ENCOUNTER → 2024-02-09 15:08 | Outpatient (CLI) | payer MEDICARE, BC, SELFPAY ==
[2019-12-30 11:16] VITALS: BMI 20.4
[2024-02-09 16:08] LABS: BUN Creatinine Ratio 22.5 (6-22); Blood Urea Nitrogen 18 mg/dL (7-17); Estimated Glomerular Filt Rate > 60 mL/min (>60)
== END ==
PROVIDERS: PCP Family Medicine; Referring Provider Physician Assistant; Visit Provider Physician Assistant
DX: Z01.812 Encounter for preprocedural laboratory examination (principal); C22.9 Malignant neoplasm of liver, not specified as primary or secondary; M47.22 Other spondylosis with radiculopathy, cervical region
CPT/HCPCS: 36415; 82565; 84520

== ENCOUNTER → 2024-02-16 12:40 | Outpatient (CLI) | payer MEDICARE, BC, SELFPAY ==
[2019-12-30 11:16] VITALS: BMI 20.4
--- NOTE | 2024-02-16 12:42 | DI.MRI.S_ITS ---
PROCEDURE: MR CERVICAL SPINE WO CON INDICATIONS: Neck pain getting worse; affecting upper extremities TECHNIQUE: Noncontrast sagittal T1 spin echo and T2 fast spin echo, sagittal STIR, foraminal oblique sagittal T2 fast spin echo, and axial gradient echo or T2 fast spin echo through the cervical spine. COMPARISON: [facility], MR, MR CERVICAL SPINE WITHOUT CONTRAST, 02/24/2023, 11:58. FINDINGS: Image quality: Excellent. Alignment and Curvature: Overall cervical straightening with trace retrolisthesis of C5 on C6. Bone Marrow: Marrow demonstrates normal overall signal. Minimal reactive endplate changes are present C5-6. Spinal Cord: Visualized spinal cord has normal size and signal. No cerebellar tonsillar herniation. Paraspinous Soft Tissues: No paravertebral masses. Prevertebral soft tissues are normal in thickness. Discs: Multilevel xvgu-vo-vcvokokq disc desiccation most severe at C5-6. C2-C3: No disc bulge, spinal stenosis or foraminal narrowing. C3-C4: Minimal disc bulge without spinal stenosis. Right foraminal narrowing. C4-C5: Disc bulge with slight effacement of the anterior thecal sac. Left and moderate right foraminal narrowing with uncovertebral hypertrophy. C5-C6: Disc bulge with stenosis. Moderate bilateral foraminal narrowing uncovertebral hypertrophy. C6-C7: Mild disc bulge without spinal stenosis. Moderate left and xcqn-ye-nkshlnji right foraminal narrowing with uncovertebral hypertrophy. C7-T1: No disc bulge or spinal stenosis. Mild left foraminal narrowing. IMPRESSION: Multilevel disc bulges. Multilevel foraminal narrowing most prominent C4-5, C5-6 and C6-7 secondary to uncovertebral arthropathy. Dictated by: Sindhu Bernal M.D. on 02/16/2024 at 20:16 Approved by: Sindhu Bernal M.D. on 02/16/2024 at 20:18
--- NOTE | 2024-02-16 13:59 | DI.CT.S_ITS ---
PROCEDURE: CT ANGIO HEAD AND NECK INDICATIONS: Vertigo with extension of neck; horizontal nystagmus TECHNIQUE: After the administration of intravenous contrast, 1 mm thick sections acquired from the aortic arch through the [place]. 3-dimensional esaareu-akiusngvz-qmqnuddhex (MIP) and/or volume rendering reformats were acquired of the central intracranial vasculature and neck separately. For radiation dose reduction, the following was used: automated exposure control, adjustment of mA and/or kV according to patient size. COMPARISON: [facility], MR, MR CERVICAL SPINE WO CON, 02/16/2024, 12:52. [facility], CT, CT CHEST WO CON, 06/10/2021, 13:02. FINDINGS: Image quality: There is artifact associated with the metallic hardware. Artifact from the metallic hardware is reduced by metal reconstruction algorithm. There is streak artifact seen through the level of the shoulders. Limited by bolus timing, with venous contamination. BRAIN: CSF spaces: Ventricles are normal in size and shape. Basal cisterns are patent. No extra-axial fluid collections. Brain: No significant abnormality of the brain can be seen. Skull and face: Calvarium and facial bones appear intact, without suspicious lesions. Orbits appear normal. Sinuses: Sinuses and mastoids are clear. HEAD CT ANGIOGRAPHY: Anterior circulation: Intracranial internal carotid arteries are normal in size and flow. The flow within the paired anterior cerebral arteries is normal and symmetric. Note is made of an accessory branch of the anterior cerebral artery system, emanating from the left A1/A2 junction. The flow within the middle cerebral arteries is normal and symmetric. The anterior communicating artery is seen. No aneurysms are seen. Posterior circulation: The left V4 segment is within normal limits. The right V4 segment largely terminates in the right posterior inferior cerebellar artery. There is a normal appearing basilar artery. Flow within the posterior cerebral arteries is normal and symmetric. No aneurysms are seen. NECK CT ANGIOGRAPHY: Carotid system: The great vessels demonstrate a conventional anatomy as they arise from the aortic arch. The origins of the common carotid arteries appear patent. The common carotid arteries demonstrate normal caliber and courses. The bifurcation regions are both widely patent. The internal carotid arteries demonstrate normal calibers and courses. Posterior circulation: The origins of the vertebral arteries both appear widely patent. The more superior extracranial portions of both vertebral arteries also demonstrate normal courses and calibers. The left vertebral artery is dominant to the right. Soft tissues: Visualized neck soft tissues demonstrate no suspicious abnormalities. Areas of calcification can be seen within the lower neck and upper chest, left worse than right. Small cystic lesions can be seen within the thyroid, which are regarded to be benign. Bones: No suspicious bony lesions. Visualized cervical spine appears normally aligned. Moderate cervical spine degenerative change can be seen. IMPRESSION: No significant intracranial arterial abnormality is seen. No significant abnormality is seen within the arteries of the neck. Additional findings: Xptetb-nb-Pacvbw developmental anomalies Cervical spine degenerative change Numerous soft tissue calcifications involving the lower neck/upper chest, similar to 202 Any quantitative measurements of stenosis were performed using NASCET criteria. Dictated by: Kye Houston M.D. on 02/16/2024 at 14:06 Approved by: Kye Houston M.D. on 02/16/2024 at 14:13
== END ==
PROVIDERS: PCP Family Medicine; Referring Provider Physician Assistant; Visit Provider Physician Assistant
DX: M47.22 Other spondylosis with radiculopathy, cervical region (principal); M48.02 Spinal stenosis, cervical region; M50.121 Cervical disc disorder at C4-C5 level with radiculopathy; R42 Dizziness and giddiness; H55.09 Other forms of nystagmus
CPT/HCPCS: 70496; 70498; 72141; Q9967

== ENCOUNTER → 2025-03-03 14:38 | Outpatient (CLI) | payer MEDICARE, BC, SELFPAY ==
[2019-12-30 11:16] VITALS: BMI 20.4
--- NOTE | 2025-03-03 14:39 | DI.MG.S_ITS ---
MM screening mammo implant BI: 03/03/2025. BI-RADS: 2 CLINICAL: 84-year old female for bilateral screening mammogram. Tyrer-Cuzick lifetime risk of 0.5%. No personal or first-degree family history of breast cancer. The patient has bilateral implants. PRIOR EXAMS 02/03/2024, 01/30/2023, 01/10/2022, 01/09/2021. MAMMOGRAPHY TECHNIQUE: 2D and 3D (tomosynthesis) digital mammographic views obtained, with additional images as needed for full coverage. Current study was also evaluated with a Computer Aided Detection (CAD) system. DENSITY C. The breasts are heterogeneously dense, which may obscure small masses. IMPLANTS Breast implants present. MAMMOGRAPHY FINDINGS Bilateral: Benign-appearing calcifications noted. There are no suspicious masses, calcifications, or other findings in the breast. IMPRESSION: * No evidence of malignancy with benign findings. RECOMMENDATIONS Bilateral * Annual screening mammography. OVERALL ASSESSMENT CATEGORY BI-RADS-2: Benign. The [employer] [place] recommends annual screening mammography beginning at age 40 for women with average risk of breast cancer. ELECTRONICALLY SIGNED: Marlene Brooks M.D. on 03/05/2025 at 10:56:42 PM PT Interpreting Station ID: [id number]
== END ==
PROVIDERS: PCP Family Medicine; Referring Provider Family Medicine; Visit Provider Family Medicine
DX: Z12.31 Encounter for screening mammogram for malignant neoplasm of breast (principal); R92.333 Mammographic heterogeneous density, bilateral breasts; R92.1 Mammographic calcification found on diagnostic imaging of breast; Z98.82 Breast implant status
CPT/HCPCS: 77063; 77067

== ENCOUNTER → 2025-03-16 11:50 | Outpatient (CLI) | payer MEDICARE, BC, SELFPAY ==
[2019-12-30 11:16] VITALS: BMI 20.4
[2025-03-18 20:36] LABS: ANA Screen, IFA Negative (.)
== END ==
PROVIDERS: PCP Family Medicine; Referring Provider Family Medicine; Visit Provider Family Medicine
DX: H04.129 Dry eye syndrome of unspecified lacrimal gland (principal); R68.2 Dry mouth, unspecified
CPT/HCPCS: 36415; 85651; 86038; 86140